=== PATIENT | male | born 1975 | race Caucasian/White ===

== ENCOUNTER 2019-09-29 22:32 | Emergency (ER) | payer OTHER ==
[~2019-09-29] VITALS: Ht 177.8 cm; Wt 79.1 kg
[2019-09-30] LABS: ABSOLUTE BASOPHILS 0.1 thou/uL (0.0-0.2); ABSOLUTE EOSINOPHILS 0.1 thou/uL (0.0-0.7); ABSOLUTE LYMPHOCYTES 2.2 thou/uL (0.8-5.3); ABSOLUTE MONOCYTES 0.6 thou/uL (0.0-1.2); ABSOLUTE NEUTROPHILS 3.9 thou/uL (1.6-8.1); BASOPHILS 0.9 %; EOSINOPHILS 1.9 %; HEMATOCRIT 47.7 % (42.0-52.0); HEMOGLOBIN 16.6 gm/dL (14.0-18.0); LYMPHOCYTES 31.8 %; MCH 32.9 pg (26.0-34.0); MCHC 34.8 g/dL (28.0-37.0); MCV 94.6 fL (80.0-100.0); MONOCYTES 8.8 %; NUCLEATED RBCS 0 /100WBC; PLATELET COUNT* 194 thou/uL (150-400); POLYS 56.6 %; RBC 5.05 mil/uL (4.50-6.00); RDW-CV 13.8 % (10.5-14.5); WBC 6.9 thou/uL (4.0-11.0)
[2019-09-30 00:07] LABS: CALCIUM 8.4 mg/dL (8.5-10.1); CREATININE 1.2 mg/dL (0.6-1.3); POTASSIUM 3.3 mmol/L (3.5-5.1)
[2019-09-30 00:12] LABS: PROTIME 10.8 Seconds (9.20-11.50)
[2019-09-30 00:17] LABS: ALBUMIN 3.6 g/dL (3.4-5.0); MAGNESIUM 1.9 mg/dL (1.8-2.4); TOTAL BILIRUBIN 0.5 mg/dL (<0.1-1.0); TOTAL PROTEIN 6.9 g/dL (6.4-8.2)
[2019-09-30] MEDS ORDERED: METFORMIN HCL500 MG PO (00:31)
[2019-09-30] MEDS ORDERED: LIPITOR 20 MG T20 M1 PO (00:31)
[2019-09-30] MEDS ORDERED: DILTIAZEM ER180 M2 PO (00:32)
[2019-09-30] MEDS ORDERED: GLUCOTROL5 MG PO (00:32)
[2019-09-30] MEDS ORDERED: ASA81BEC PO (00:33)
[2019-09-30] MEDS ORDERED: FLOMAX0.4 MG PO (00:33)
[2019-09-30] MEDS ORDERED: MYSOLINE50 MG PO (00:33)
[2019-09-30] MEDS ORDERED: PROSCAR 5MG TABL5 MG PO (00:33)
[2019-09-30] MEDS ORDERED: FLEXERIL PO (01:34)
[2019-09-30] MEDS ORDERED: TRAMADOL 50 MG50 MG PO (01:34)
[2019-09-30 01:39] VITALS: BP 134/98
--- NOTE | 2019-09-30 10:13 | EKG ---
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 : 1975 Requested By: Malgorzata Matthews Order Number: [id number] MD: Chapo Fry Measurements Intervals [place] Rate: 85 P: 66 TX: 148 QRS: 72 QRSD: 90 T: 29 QT: 350 QTc: 417 Interpretive Statements Sinus rhythm Probable left atrial enlargement Baseline wander in lead(s) V1,V2 Compared to ECG 02/22/2007 09:44:37 No significant changes Electronically Signed On 09-30-2019 10:13:07 CDT by Chapo Fry [email or web address] <ELECTRONICALLY SIGNED> By: Chapo Fry MD, [facility] 09/30/19 [id number] Chapo Fry MD, [facility] /EPI
--- NOTE | 2019-09-30 11:42 | EKG ---
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
== END 2019-09-30 01:39 | disposition home or self-care (01) ==
LOC: M.ERS 22:32
PROVIDERS: Emergency Medicine
DX: R07.89 Other chest pain (principal); F17.210 Nicotine dependence, cigarettes, uncomplicated; Z88.5 Allergy status to narcotic agent; Z88.0 Allergy status to penicillin; Z91.013 Allergy to seafood